=== PATIENT | male | born 1940 | race Caucasian/White ===

== ENCOUNTER → 2021-03-27 14:40 | Outpatient (CLI) | payer MEDICARE, OTHER | END | disposition home or self-care (01) | LOC: D.LAB 14:40 | PROVIDERS: ATTEND Internal Medicine Pulmonary Disease | DX: Z11.52 Encounter for screening for COVID-19 (principal) ==

== ENCOUNTER → 2021-04-01 11:00 | Outpatient (CLI) | payer MEDICARE, OTHER | END | disposition home or self-care (01) | LOC: D.RT 03-26 10:00 | PROVIDERS: ATTEND Internal Medicine Pulmonary Disease | DX: R06.09 Other forms of dyspnea (principal); Z11.52 Encounter for screening for COVID-19 ==

== ENCOUNTER 2021-04-17 07:51 | Day surgery (SDC) | payer MEDICARE, OTHER ==
--- NOTE | 2021-04-16 12:25 | NUR ---
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
[~2021-04-17] VITALS: Ht 172.7 cm; Wt 77.3 kg
[2021-04-17 08:11] LABS: BASOPHILS 1.2 % (0-2); EOSINOPHILS 2.6 % (0-7); HEMATOCRIT 38.6 % (42.0-54.0); HEMOGLOBIN 12.7 g/dL (13.5-17.5); LYMPHOCYTES 25.3 % (15-50); MCH 32.1 pg (26.0-34.0); MCV 97.3 fL (80.0-100.0); MEAN PLATELET VOLUME 6.8 fL (7.4-10.4); MONOCYTES 15.6 % (2-11); NEUTROPHILS 55.3 % (40-80); PLATELET COUNT 245 10x3/uL (130-400); RBC 3.97 10x6/uL (4.20-6.10); RDW 15.6 % (11.5-14.5); WBC 4.2 10x3/uL (4.8-10.8)
[2021-04-17 08:22] LABS: ANION GAP 10.8 mmol/L (8-16); CALCIUM 8.7 mg/dL (8.5-10.1); CARBON DIOXIDE 28.1 mmol/L (21.0-32.0); CREATININE - SERUM 1.5 mg/dL (0.6-1.3); POTASSIUM - SERUM 4.9 mmol/L (3.5-5.1)
[2021-04-17] MEDS ORDERED: COREG 3.1253.125 MG PO (08:33)
[2021-04-17] MEDS ORDERED: ELIQUIS5 MG PO (08:34)
[2021-04-17] MEDS ORDERED: CRESTOR20 MG PO (08:34)
[2021-04-17] MEDS ORDERED: CARDURA2 MG PO (08:35)
[2021-04-17] MEDS ORDERED: TOFRANIL25 MG PO (08:37)
[2021-04-17] MEDS ORDERED: LOVENOX40 MG/0.4 SC (08:39)
[2021-04-17] MEDS ORDERED: ZYRTEC10 MG PO (08:40)
[2021-04-17] MEDS ORDERED: BAYER CHEWABLE81 MG PO (08:41)
[2021-04-17] MEDS ORDERED: OCCUVITE PO (08:42)
[2021-04-17 08:52] LABS: INR 0.96 (0.85-1.17); PROTIME 11.9 SECONDS (11.6-15.0)
[2021-04-17 08:58] VITALS: Ht 172.7 cm; Wt 77.3 kg
[2021-04-17 09:35] LABS: APTT 27.6 SECONDS (22.8-39.4)
--- NOTE | 2021-04-17 13:56 | NUR ---
[id number] IR CALLED FOR ORDERS IN REFERRENC TO BLOOD THINNERS AND LOVINOX. CXR RESULTS AND WHEN CAN HE GO HOME AND WHEN CAN HE PLAY GOLF. PT STILL ON LEFT SIDE. SPOKE TO DARYL AND WILL GIVEN HIM THE MESSAGE
== END 2021-04-17 15:35 | disposition home or self-care (01) ==
LOC: D.CT 07:51
PROVIDERS: General Practice; ATTEND Internal Medicine Pulmonary Disease
DX: R91.8 Other nonspecific abnormal finding of lung field (principal)